=== PATIENT | male | born 1960 | race Native Hawaiian/Other Pacific Islander ===

== ENCOUNTER 2022-07-03 15:23 | Emergency (ER) | payer BC ==
[~2022-07-03] VITALS: Ht 167.6 cm; Wt 69.4 kg
[2022-07-03 15:43] VITALS: TEMP 98.3
[2022-07-03 16:56] LABS: PLATELET COUNT 254 K/uL (142-355)
[2022-07-03 17:00] LABS: POTASSIUM 4.1 mmol/L (3.6-5.2)
[2022-07-03 17:15] LABS: PARTIAL THROMBOPLASTIN TIME 22.9 SECONDS (24.5-33.6)
[2022-07-03 17:30] VITALS: BP 138/82
== END 2022-07-03 19:30 | disposition left against medical advice (07) ==
LOC: ED 15:23
PROVIDERS: Emergency Medicine
DX: E87.1 Hypo-osmolality and hyponatremia (principal); Z53.29 Procedure and treatment not carried out because of patient's decision for other reasons
CPT/HCPCS: 36415; 80053; 81002; 82533; 83880; 83930; 83935; 84133; 84300; 84443; 84484; 85027; 85379; 85610; 85730; 93005; 99284; Q9963